=== PATIENT | male | born 1990 | race Two or more races ===

== ENCOUNTER 2022-03-07 09:54 | Emergency (ER) | payer OTHER ==
[~2022-03-07] VITALS: Ht 170.2 cm; Wt 75.0 kg
[2022-03-07 10:11] VITALS: BP 132/85
[2022-03-07] MEDS ORDERED: LIDOCAINE 1% 10 ML VIAL SQ ONE (10:15)
== END 2022-03-07 11:02 | disposition home or self-care (01) ==
LOC: EMS 09:54
DX: S00.85XA Superficial foreign body of other part of head, initial encounter (principal); F12.90 Cannabis use, unspecified, uncomplicated; W45.8XXA Other foreign body or object entering through skin, initial encounter; Y93.89 Activity, other specified; Y92.89 Other specified places as the place of occurrence of the external cause; Y99.8 Other external cause status
CPT/HCPCS: 10120; 99285; J3490